=== PATIENT | female | born 1990 | race Asian ===

== ENCOUNTER → 2016-11-13 | Outpatient (CLI) | payer OTHER ==
[~2016-11-13] MED LIST: BIOT1CAP3 PO; CALCTAB41 PO; FISH100049 PO; LEVA500T PO; RECLTAB PO; VITMTA PO
--- NOTE | 2016-11-13 14:07 | REP ---
BILATERAL HANDS: LEFT HAND, FOUR VIEWS: There is no acute fracture or dislocation. The joint spaces are normal in appearance. IMPRESSION: There is no acute fracture or dislocation. RIGHT HAND, FOUR VIEWS: There is no acute fracture or dislocation. The joint spaces are normal in appearance. A bone island is present in the distal radius. IMPRESSION: There is no acute fracture or dislocation. Signed by Denys Ward MD 11/13/2016 02:11 P
[2016-11-13 20:08] LABS: MEAN CORPUSCULAR HEMOGLOBIN 28.7 pg (27.0-33.0); MEAN CORPUSCULAR HGB CONC 31.6 g/dl (32.0-36.5); MEAN CORPUSCULAR VOLUME 90.8 fl (80.0-96.0); WHITE BLOOD COUNT 8.3 K/mm3 (4.0-10.0)
[2016-11-13 20:09] LABS: RED CELL DISTRIBUTION WIDTH 13.2 % (11.5-14.5)
[2016-11-13 20:20] LABS: ALBUMIN 3.8 GM/DL (3.2-5.2); ALBUMIN/GLOBULIN RATIO 1.12 (1.00-1.93); ALKALINE PHOSPHATASE 53 U/L (45-117); ALT/SGPT 41 U/L (12-78); ANION GAP 9 MEQ/L (8-16); AST/SGOT 27 U/L (15-37); BILIRUBIN,TOTAL 0.4 MG/DL (0.2-1.0); BLOOD UREA NITROGEN 13 MG/DL (7-18); CALCIUM LEVEL 8.8 MG/DL (8.5-10.1); CARBON DIOXIDE LEVEL 29 MEQ/L (21-32); CHLORIDE LEVEL 104 MEQ/L (98-107); CREATININE FOR GFR 0.66 MG/DL (0.55-1.02); FREE T4 1.24 NG/DL (0.76-1.46); GLOMERULAR FILTRATION RATE > 60.0 (>60); GLUCOSE, FASTING 74 MG/DL (70-105); SODIUM LEVEL 142 MEQ/L (136-145); TOTAL PROTEIN 7.2 GM/DL (6.4-8.2)
[2016-11-13 21:19] LABS: BANDS 1 % (< 11); EOSINOPHILS 4 % (0-5)
== END ==
LOC: M WUC 10:19
PROVIDERS: ATTEND Physician Assistant
DX: M25.541 Pain in joints of right hand (principal); M25.542 Pain in joints of left hand

== ENCOUNTER → 2017-01-04 | Outpatient (REF) | payer OTHER | LOC: M LAB REF 16:10 | PROVIDERS: ATTEND Physician Assistant | DX: J02.9 Acute pharyngitis, unspecified (principal) ==

== ENCOUNTER → 2017-01-23 | Outpatient (CLI) | payer OTHER ==
[~2017-01-23] MED LIST changes: +LEVA1TAB2 PO; -LEVA500T PO
[2017-01-23 18:02] LABS: BASO % 0.4 % (0.0-1.0); EOS # 0.2 K/mm3 (0.0-0.50); EOS % 1.5 % (0.0-3.0); LARGE UNSTAINED CELL # 0.2 K/mm3 (0.0-0.4); LARGE UNSTAINED CELL % 1.9 % (0.0-4.0); LYMPH # 2.4 K/mm3 (1.5-6.5); LYMPH % 22.3 % (24.0-44.0); MEAN CORPUSCULAR HEMOGLOBIN 29.6 pg (27.0-33.0); MEAN CORPUSCULAR HGB CONC 32.3 g/dl (32.0-36.5); MEAN CORPUSCULAR VOLUME 91.6 fl (80.0-96.0); MONO # 0.4 K/mm3 (0.0-0.8); MONO % 3.9 % (0.0-5.0); NEUTROPHILS # 7.4 K/mm3 (1.8-7.7); PLATELET COUNT, AUTOMATED 355 k/mm3 (150-450); WHITE BLOOD COUNT 10.5 K/mm3 (4.0-10.0)
[2017-01-25 11:07] LABS: HBsAg Prenatal NEGATIVE (NEGATIVE)
== END ==
LOC: M SMT 14:03
PROVIDERS: ATTEND Obstetrics & Gynecology
DX: Z34.81 Encounter for supervision of other normal pregnancy, first trimester (principal)

== ENCOUNTER → 2017-03-21 | Outpatient (CLI) | payer OTHER ==
--- NOTE | 2017-03-21 15:25 | REP ---
OBSTETRIC SONOGRAPHY: HISTORY: Supervision of for anatomy. FINDINGS: Scanning through the gravid uterus demonstrates a viable single intrauterine gestation in a breech lie. motion is observed, and heart rate is recorded at 147 beats per minute. An anterior grade 0 placenta is seen without evidence of previa. Amniotic fluid is subjectively normal. Closed cervical length is measured at 3.8 cm transabdominally. No extrauterine abnormalities observed. Umbilical cord is seen draping across the shoulders. No anomaly is seen. The following anatomic structures are identified and felt to be unremarkable: cranium, choroid plexus, cavum, cerebellum and posterior fossa, face and profile, lungs, four-chamber heart with left and right ventricular outflow tract views, diaphragm, left-sided stomach, abdominal wall cord insertion, three-vessel umbilical cord, kidneys and bladder, spine, upper and lower extremities. BIOMETRY CHART: BPD 4.4 cm = 19 weeks 2 days Head circumference 16.5 cm = 19 weeks 1 day Abdominal circumference 14.0 cm = 19 weeks 3 days Femur length 2.8 cm = 18 weeks 5 days Humeral length 3.0 cm = 19 weeks 6 days Cerebellar diameter 1.9 cm = 18 weeks 5 days HC/AC ratio normal 1.17 Cephalic index normal 0.73 Estimated weight 273 grams, 0 pounds 9 ounces 52nd percentile for 19 weeks 0 days. IMPRESSION: Viable single intrauterine gestation at 19 weeks 0 days by today's composite sonographic criteria. STAR by today's sonography 08/15/2017. Signed by Vel Barnard MD 03/22/2017 10:05 A
== END ==
LOC: M SMT 08:38
PROVIDERS: ATTEND Advanced Practice Midwife
DX: Z36 Encounter for antenatal screening of mother (principal); Z3A.18 18 weeks gestation of pregnancy